=== PATIENT | female | born 2000 | race Caucasian/White ===

== ENCOUNTER 2022-01-17 11:52 | Emergency (ER) | payer SELFPAY ==
[2022-01-17 11:56] VITALS: BP 119/92; PULSE 83; RESP 12; TEMP 36.9; O2SAT 98
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
[2022-01-17 13:17] VITALS: BP 110/69; PULSE 64; RESP 16; TEMP 37.1; O2SAT 100
== END 2022-01-17 13:20 | disposition home or self-care (01) ==
PROVIDERS: Emergency Provider Nurse Practitioner Family
DX: T67.9XXA Effect of heat and light, unspecified, initial encounter (principal); R51.9 Headache, unspecified; X58.XXXA Exposure to other specified factors, initial encounter
CPT/HCPCS: 99283

== ENCOUNTER 2024-10-22 11:40 | Outpatient (CLI) | payer OTHER, SELFPAY ==
[2024-10-22 12:32] LABS: Beta HCG Quantitative < 2.39 mIU/ML
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
--- OUTSIDE RECORDS SUMMARY | 2024-10-22 13:18 | XMS_ITS | Clinical Summary ---
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 F/u 1 week or sooner prn. Medical History Medical History Date Comments Amblyopia, right eye 01/16/2019 Commotio retinae of right eye 01/16/2019 Traumatic iritis 01/16/2019 Vitreous hemorrhage, right eye (HCC) 01/28/2019 Social History Tobacco Use Types Packs/Day Years [...] on file Sexual Orientation Not on file Obstetrics History Last Filed Vital Signs Vital Sign Reading [...] 02/13/2024 10:30 PM CDT Plan of Treatment Health Maintenance Due Date Last Done Comments Cervical Cancer Screening 2000 Depression Screening 2000 Hepatitis C Screening 2000 DTaP/Tdap/Td Vaccine (1 - Tdap) 2011 Varicella Vaccines (1 of 2 - 13+ 2-dose series) 2013 Hepatitis B Screening 2018 Regular Well Visit/Exam 18-64 2018 Covid-19 Vaccine (3 - 2023-2 5 season) 2024 05/07/2021, 04/16/2021 Influenza Vaccine (#1) 2024 05/28/2019 HPV Vaccines Completed 03/17/2017, 03/24/2016, 03/23/2015 Pneumococcal vaccine <65 Aged Out No longer eligible based on patient's age to complete this topic [facility] [place] [id number] [facility] [id number] Member Subscriber Plan / Payer (Ef fective 2021-Present) Name:Angela Contreras Member ID:[id number] Relation to Subscriber:Self Name:Angela Contreras Subscriber ID:[id number] Payer ID:[id number] Type:[employer] HMO/PPO Address: [address] [place] [phone] Care Teams Purchasing Analyst Relationship Specialty Start Date End Date Miscellaneous, Not In File PCP - General 02/13/24
--- OUTSIDE RECORDS SUMMARY | 2024-10-22 13:18 | XMS_ITS ---
Author Organization [facility] Address [facility] [address] Care Team Providers Care Glassie Name Role Phone Benton Ott Sunny [phone] Medications Medication SIG (Take, Route, Frequency, Duration) Notes Start Date End Date Status buPROPion HCl ER (XL) 150 MG 1 tablet in the morning Orally Once a day for 90 days Active Social History Sex Assigned At : Social History Observation Description Sex Assigned At Female Encounters Encounter Location Date Provider Diagnosis [facility], [place] [address] [phone] 05/31/2024 Benton Ott ADHD (attention defi cit hyperactivity disorder), combined type F90.2 Assessments Encounter Date Diagnosis (ICD Code) Assessment Notes Treatment Notes Treatment Clinical Notes Section Notes 05/31/2024 ADHD (attention deficit hyperactivity disorder), combined type (ICD-10 - F90.2) Plan Of Treatment Medication Medication Name Sig Start Date Stop Date Notes buPROPion HCl ER (XL) 150 MG 1 tablet in the morning Orally Once a day for 90 days Progress Notes * Daniella CONTRERASaret CDOB: [birth year] (23 yo F)Acc No.[id number]:05/31/2024 Patient: Angela WRIGHT Dayday :2000 A ge:23 Y S ex:Female Address:[address]ending [facility] to [facility] [place], [address] * Refills Refill buPROPion HCl ER (XL) Tablet Extended Release 24 Hour, 150 MG, Orally, 90, 1 tablet in the morning, Once a day, 90 days, Refills=0 * true * Date: Generated for Jason key/Nohemy/Michael on: 0 10/22/2024 01:18 PM CDT
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
--- OUTSIDE RECORDS SUMMARY | 2024-10-22 13:19 | XMS_ITS ---
Author Organization [facility] [employer] Address [facility] [address] [address] Care Team Providers Care Training Consultant Name Role Phone Benton Ott Sunny [phone] Medications Medication SIG (Take, Route, Fr equency, Duration) Notes Start Date End Date Status FLUoxetine HCl 20 MG 1 tablet Orally Onc e a day for 30 days 08/29/2024 Active Social History Sex Assigned At : Social History Observation Description Sex Assigned At Female Encounters Encounter Location Date Provider Diagnosis [facility] [employer] [facility], [address] [address] [address] 08/29/2024 Benton Ott ADHD (attention defi cit hyperactivity disorder), combined type F90.2 Assessments Encounter Date Diagnosis (ICD Code) Assessment Notes Treatment Notes Treatment Clinical Notes Section Notes 08/29/2024 ADHD (attention deficit hyperactivity disorder), combined type (ICD-10 - F90.2) Plan Of Treatment Medication Medication Name Sig Start Date Stop Date Notes FLUoxetine HCl 20 MG 1 tablet Orally Onc e a day for 30 days 08/29/2024 buPROPion HCl ER (XL) 150 MG 1 tablet in the morning Orally Once a day Progress Notes * Angela CONTRERAS CDOB: [birth year] (24 yo F)Acc No.[id number]:08/29/2024 Patient: Angela WRIGHT Dayday :2000 A ge:24 Y S ex:Female Address:[facility] [place], [address] * Refills Start FLUoxetine HCl Capsule, 20 MG, Orally, 30, 1 tablet, Once a day, 30 days, Refills=0 Stop buPROPion HCl ER (XL) Tablet Extended Release 24 Hour, 150 MG, Orally, 1 tablet in the morning, Once a day * true * Date: Generated for Jason key/Nohemy/Michael on: 0 10/22/2024 01:19 PM CDT
--- OUTSIDE RECORDS SUMMARY | 2024-10-22 13:19 | XMS_ITS | Clinical Summary ---
Author Organization [facility] Address [address] [place] [address] Phone Care Team Providers Care Commercial Carpet Installer Name Role Phone Provider, None Primary Care Provider Unavailabl e Allergies No known active allergies Medications gentamicin (GARAMYCIN) 0.3 % Solution Place 2 Drops in right eye every 4 hours. 5 mL 9 Active Additional Information Patient not taking.Reported on 08/16/2022 Meloxicam 15 MG Tablet Take 1 Tab by mouth daily. 10 Tab 9 Active Additional Information Patient not taking.Reported on 08/16/2022 Social History Tobacco Use Types Packs/Day Years Used Date Smoking Tobacco: Never Smokeless Tobacco: Never Alcohol Use Standard Drinks/Week Comments Never 0 (1 standard drink = 0.6 oz pur e alcohol) AUDIT-C Answer Date Recorded Frequency of Alcohol Consumption Never 01/15/2019 Average Number of Drinks Not on file 019 Frequency of Binge Drinking Not on file 01/05 Comments Unknown Sex and Gender Information Value Date Recorded Sex Assigned at Not on file Legal Sex Female 10:19 PM CDT Gender Identity Not on file Sexual Orientation Not on file Last Filed Vital Signs Vital Sign Reading Time Taken Comments Blood Pressure 116/62 01/16/2019 4:30 AM CDT Pulse 76 01/16/2019 4:30 AM CDT Temperature 37 C (98.6 F) 01/15/2019 12:22 AM CDT Respiratory Rate 18 01/16/2019 4:30 AM CDT Oxygen Saturation 100% 01/16/2019 4:30 AM CDT Inhaled Oxygen Concentration - - Weight 47.2 kg (104 lb) 01/15/2019 10:21 PM CDT Height 157.5 cm (5' 2 ) 01/15/2019 10:21 PM CDT Body Mass Index 19.02 01/15/2019 10:21 PM CDT Plan of Treatment Health Maintenance Due Date Last Done Comments Hepatitis C Virus (HCV) Screening 2000 TdaP Immunization 2000 Hepatitis B Immunization (1 of 3 - 19+ 3-dose series) 2019 Pap Smear 2021 Influenza Immunization (#1) 2024 SARS-COV-2 Immunization (3 - 2023-25 season) 2024 05/07/2021, 04/16/2021 Respiratory Syncytial Virus (RSV) Immunization (Adult) (1 - 1-dose 75+ series) 2075 Human Papillomavirus (HPV) Immunization Completed 03/17/2017, 03/24/2016, 03/23/2015 Meningococcal Immunization (ACWY) Completed 03/17/2017 Meningococcal B Immunization Discontinued 05/2018, 03/17/2017 Pneumococcal Immunization Combined Aged Out No longer eligible based on patient's age to complete this topic Rotavirus Immunization Aged Out No lo nger eligible based on patient's age to complete this topic Insurance [facility] OAP Care Teams Commercial Carpet Installer Relationship Specialty Start Date End Date Provider, None [place] PCP - General 01/15/19
--- OUTSIDE RECORDS SUMMARY | 2024-10-22 13:19 | XMS_ITS | Patient Health Record ---
Author Organization [facility] [email or web address] Address [address] [facility] [address] [place] [address] Care Team Providers Care Application Support Manager Name Role Phone Benton Ott Unavailable [phone] Van Mcarthur Unavailable [phone] Migration, Provider Unavailable Unavailable MikeyJada kenny Unavailable [phone] Allergies No Known Allergies Results Component Value Reference Range Notes DRUG MONITOR, COCAINE METAB, QN, URINE ([id number]) Reviewed date:04/12/2024 10:40:18 AM Interpretation: Performing Lab:[facility], [facility] [address], [id number] Eduardo Virk Notes/Report: FASTING: NO Benzoylecgonine NEGATIVE <100 ng/mL Cocaine Comments See LDT Not es DRUG MONITOR, MDMA/MDA, QN, URINE ([id number]) Reviewed date:04/12/2024 10:40:10 AM Interpretation: Performing Lab:[facility] [id number], [id number] Eduardo Virk Notes/Report: FASTING: NO MDA NEGATIVE <200 ng/mL MDMA NEGATIVE <200 ng/mL MDMA Comments See LDT Notes DRUG MONITOR, OPIATES EXPAND ED, QN, URINE ([id number]) Reviewed date:04/12/2024 10:40:01 AM Interpretation: Performing Lab:[facility] [id number], [id number] Eduardo Virk, Director - [id number] [facility] Notes/Report: FASTING: NO Codeine NEGATIVE <50 ng/mL Hydrocodone NEGATIVE <50 ng/mL Hydromorphone NEGATIVE <50 ng/mL Morphine NEGATIVE <50 ng/mL Norhydrocodone NEGATIVE <50 ng/mL Opiates Comments See LDT Not es Noroxycodone NEGATIVE <50 ng/mL Oxycodone NEGATIVE <50 ng/mL Oxymorphone NEGATIVE <50 ng/mL Oxycodone Comments See LDT N otes Notes and Comments This drug testing is for medical treatment only. Analysis was performed as non-forensic testing and these results should be used only by healthcare providers to render diagnosis or treatment, or to monitor progress of medical conditions. LDT Notes: Confirmation tests were developed and their analytical performance characteristics have been determined by [employer]. It has not been cleared or approved by the FDA. This assay has been validated pursuant to the CLIA regulations and is used for clinical purposes. Healthcare Providers needing Interpretation assistance, please contact us at [phone] ( ) M-F, 8am to 10pm EST DRUG MONITOR, BENZO, QN, URI NE ([id number]) Reviewed date:04/12/2024 10:40:24 AM Interpretation: Performing Lab:[facility], [facility], [id number] Eduardo Virk Notes/Report: FASTING: NO Alphahydroxyalprazolam NEGATIVE <25 ng/mL Alphahydroxymidazolam NEGATIVE <50 ng/mL Alphahydroxytriazolam NEGATIVE <50 ng/mL Aminoclonazepam NEGATIVE <25 ng/mL Hydroxyethylflurazepam NEGATIVE <50 ng/mL Lorazepam NEGATIVE <50 ng/mL Nordiazepam NEGATIVE <50 ng/mL Oxazepam NEGATIVE <50 ng/mL Temazepam NEGATIVE <50 ng/mL Benzodiazepines Comments See LDT Notes DRUG MONITOR,AMPHETAMINE, QN , URINE ([id number]) Reviewed date:04/12/2024 10:40:32 AM Interpretation: Performing Lab:[facility], [place] Eduardo Virk Notes/Report: FASTING: NO Amphetamine NEGATIVE <250 ng/mL Methamphetamine NEGATIVE <250 ng/mL Amphetamines Comments See LD T Notes Reason For Referral No Information Medications Medication SIG (Take, Route, Fr equency, Duration) Notes Start Date End Date Status FLUoxetine HCl 20 MG 1 tablet Orally Onc e a day for 30 days 08/29/2024 Active Prazosin HCl 1 MG 1 capsule at bedtime Orally Once a day Active Propranolol HCl 10 MG 1 tablet Orally Three times a day As needed Active Social History Tobacco Use: Social History [...] Problem Status W/U Status Risk Notes Problem [id number] KATHERINE (generalized anxiety disorder) (F41.1) Active confirmed Problem [id number] Nightmares (F51.5) Active confirmed Problem 48603074 Severe episode o f recurrent major depressive disorder, without psychotic features (F33.2) Active confirmed Problem Attention deficit hyperactivity disorder (943305654) ADHD (attention deficit hyperactivity disorder), combined type (F90.2) Active confirmed Problem 33405883 MDD (major depressive disorder), recurrent episode, moderate (F33.1) Active confirmed Problem 39811950 PTSD (post-traumatic stress disorder) (F43.10) Active confirmed Problem 87063196 Attention defici t hyperactivity disorder (ADHD), combined type (F90.2) Active confirmed Problem 174269895 Marijuana use (F12.90) Active confirmed Problem 373791064 Mild episode of recurrent major depressive disorder (F33.0) Active confirmed Problem Severe major depression, single episode, without psychotic features (54562608) MDD (major depressive disorder), severe (F32.2) Active confirmed Problem 28045006 Borderline personality disorder in adult (F60.3) Active confirmed Problem 46131052 Sleep disorder (G47.9) Active confirmed Vital Signs Heart Rate 65 /min 06/10/2024 Blood pressure diastolic 82 mm Hg 06/10/2024 Weight-kg 72.03 kg 04/22/2024 Blood pressure systolic 110 mm Hg 06/10/2024 Weight 158.8 lbs 04/22/2024 Procedures Procedure Date Ordered Date Performed Result Body Sit e ADHD Testing 03/28/2024 N/A ADHD Testing 04/22/2024 N/A Encounters Encounter Location Date Provider Diagnosis [facility] [employer] [address] [facility] [address] [place] [address] 03/28/2024 Benton Clubb Attention deficit hyperactivity disorder (ADHD), combined type F90.2 ; Severe episode of recurrent major depressive disorder, without psychotic features F33.2 ; KATHERINE (generalized anxiety disorder) F41.1 ; PTSD (post-traumatic stress disorder) F43.10 ; Borderline personality disorder in adult F60.3 and Sleep disorder G47.9 [facility] [employer] [address] [facility] [address] [place] [address] 04/03/2024 Jada Watkins [facility] [employer] [facility], [employer] [address] [facility] [address] [place] [address] 04/10/2024 Jada Watkins KATHERINE (generalized anxiety disorder) F41.1 [employer] [facility] [address] [facility] [address] [place] [address] 04/15/2024 Van Mcarthur [employer] [facility], [employer] [address] [place] [address] 04/22/2024 Benton Clubb KATHERINE (generalized anxiety disorder) F41.1 ; MDD (major depressive disorder), severe F32.2 ; PTSD (post-traumatic stress disorder) F43.10 ; Attention deficit hyperactivity disorder (ADHD), combined type F90.2 ; Borderline personality disorder in adult F60.3 ; Nightmares F51.5 and Marijuana use F12.90 [facility], [employer] [address] [facility] [address] [place] [address] 04/24/2024 Jada Watkins [facility] [employer] [facility] [address] [address] [place] [address] 04/26/2024 Van Mcarthur ADHD (attention deficit hyperactivity disorder), combined type F90.2 [facility] [employer] [facility], [facility] [address] [facility] [address] [place] [address] 05/01/2024 Jada Jensenzoya [facility] [employer] [facility], [facility] [address] [facility] [address] [place] [address] 05/03/2024 Benton Clubb ADHD (attention deficit hyperactivity disorder), combined type F90.2 ; MDD (major depressive disorder), severe F32.2 ; PTSD (post-traumatic stress disorder) F43.10 ; Borderline personality disorder in adult F60.3 ; Nightmares F51.5 and Marijuana use F12.90 [facility] [employer] [facility], [employer] [address] [facility] [address] [place] [address] 06/10/2024 Benton Clubb Borderline personality disorder in adult F60.3 ; Mild episode of recurrent major depressive disorder F33.0 ; ADHD (attention deficit hyperactivity disorder), combined type F90.2 ; PTSD (post-traumatic stress disorder) F43.10 ; Nightmares F51.5 and Marijuana use F12.90 [facility] [employer] [facility] [address] [address] 12/23/2023 Provider Migration [facility] [employer] [facility] [address] [address] 12/24/2023 Provider Migration [employer] [facility], [facility] [address] [address] 05/31/2024 Benton Clubb ADHD (attention deficit hyperactivity disorder), combined type F90.2 [facility] [employer] [facility], [employer] [address] [address] 08/29/2024 Benton Clubb ADHD (attention deficit hyperactivity disorder), combined type F90.2 Assessments Encounter Date Diagnosis (ICD Code) Assessment Notes Treatment Notes Treatment Clinical Notes Section Notes 03/28/2024 Severe episode of recurrent major depressive disorder, without psychotic features (ICD-10 - F33.2) 1. Major Depressive Disorder (MDD) - Start Bupropion (Wellbutrin) 75 mg daily for four weeks. She is instructed to set an alarm for 1 pm daily to ensure medication adherence. - Reassess her response to medication in one month. 2. Post-Traumatic Stress Disorder (PTSD) - Prescribe Prazosin for nightmares, starting at the lowest dose. Educate her on taking medication before bedtime and avoiding activities that may interfere with its effectiveness such as using her phone for hours before falling asleep. - Reevaluate her response to medication in one month. 3. Anxiety - Monitor her anxiety levels during follow-up appointments. - Encourage her to engage in anxiety-alleviat ing activities such as sleep and hiking. 4. Attention Deficit Hyperactivity Disorder (ADHD) - Suspected - Order ADHD testing: one-hour computerized exam. - Discuss results and potential treatment options once test results are available. 5. Borderline Personality Disorder (BPD) - Refer her to Jada, a therapist at the walk-in clinic, for group therapy sessions designed for individuals with BPD. - Encourage her to attend weekly sessions starting Monday, the , from 4:00-5:30 PM. 6. Sleep Disturbances (Insomnia and Excessive Sleeping) - Instruct her to avoid caffeine and maintain a consistent sleep schedule. - Monitor her sleep patterns during follow-up appointments. She reports sleeping about 11-12 hours per day. 7. Vitamin Deficiencies - Suspected - Order blood work to assess vitamin D and B12 levels, as well as thyroid function through [employer]. - Consider prescribing vitamin supplements or other interventions based on lab results. 8. Substance Use (Alcohol and Marijuana) - Continue to monitor her substance use during follow-up appointments. - Provide education on potential risks and benefits of use. She reports occasional alcohol use and using THC gummies 2-3 times per week. Follow-up - Schedule a follow-up appointment in one month to reassess her response to the treatment plan and discuss any necessary adjustments. 03/28/2024 Attention deficit hyperactivity disorder (ADHD), combined type (ICD-10 - F90.2) 1. Major Depressive Disorder (MDD) - Start Bupropion (Wellbutrin) 75 mg daily for four weeks. She is instructed to set an alarm for 1 pm daily to ensure medication adherence. - Reassess her response to medication in one month. 2. Post-Traumatic Stress Disorder (PTSD) - Prescribe Prazosin for nightmares, starting at the lowest dose. Educate her on taking medication before bedtime and avoiding activities that may interfere with its effectiveness such as using her phone for hours before falling asleep. - Reevaluate her response to medication in one month. 3. Anxiety - Monitor her anxiety levels during follow-up appointments. - Encourage her to engage in anxiety-alleviat ing activities such as sleep and hiking. 4. Attention Deficit Hyperactivity Disorder (ADHD) - Suspected - Order ADHD testing: one-hour computerized exam. - Discuss results and potential treatment options once test results are available. 5. Borderline Personality Disorder (BPD) - Refer her to Jada, a therapist at the walk-in clinic, for group therapy sessions designed for individuals with BPD. - Encourage her to attend weekly sessions starting Monday, the , from 4:00-5:30 PM. 6. Sleep Disturbances (Insomnia and Excessive Sleeping) - Instruct her to avoid caffeine and maintain a consistent sleep schedule. - Monitor her sleep patterns during follow-up appointments. She reports sleeping about 11-12 hours per day. 7. Vitamin Deficiencies - Suspected - Order blood work to assess vitamin D and B12 levels, as well as thyroid function through [employer]. - Consider prescribing vitamin supplements or other interventions based on lab results. 8. Substance Use (Alcohol and Marijuana) - Continue to monitor her substance use during follow-up appointments. - Provide education on potential risks and benefits of use. She reports occasional alcohol use and using THC gummies 2-3 times per week. Follow-up - Schedule a follow-up appointment in one month to reassess her response to the treatment plan and discuss any necessary adjustments. 04/10/2024 KATHERINE (generalized anxiety disorder) (ICD-10 - F41.1) 04/22/2024 KATHERINE (generalized anxiety disorder) (ICD-10 - F41.1) 1. Major Depressive Disorder - PHQ-9 score improvement from 23 to 17. Persistent low mood, impaired concentration, poor motivation, guilt, worthlessness, and sleep disturbances. - Patient rates current depression as 8/10. - Plan: a. Change bupropion to extended-release once-daily dosing. b. Monitor mood, side effects, and tolerability. c. Encourage regular therapy appointments. d. encourage medication compliance. 2. Anxiety - Anxiety remains unchanged with restlessness and irritability. - KATHERINE score went from 16 last visit to 17 during this visit. - Plan: a. initiate Propranolol HCL 10 mg po TID PRN b. increase bupropion from 75 mg daily to ER 150 mg daily. c. Monitor anxiety levels. d. Encourage discussing anxiety management strategies in therapy. 3. Sleep Disturbances and Nightmares - Prazosin helps with nightmares but patient not taking consistently. - Issues with sleep onset, night awakenings, and morning awakenings. - Plan: a. Encourage consistent prazosin use as prescribed for nightmares. b. Monitor sleep quality and nightmare frequency. 4. Decreased Appetite - Patient reports decreased appetite, possibly bupropion-relate d. - Plan: Monitor appetite and weight, consider medication adjustment if problematic. 5. ADHD Evaluation - Patient needs to schedule ADHD exam. - Plan: Instruct patient to schedule ADHD evaluation and follow up with results. 6. Follow-Up and Therapy - Patient missed ~6 days of medication. - Attending group therapy sessions.- missed one session. - Plan: a. Schedule 1-month follow-up to assess progress and medication effectiveness. b. Encourage continued group therapy for BPD and consider individual therapy. 7. Marijuana use. - encouraged to use dispensary and approved sources - educated on safety and not to operate heavy machinery while intoxicated - discussed marijuana's risks and negative correlation with depression and medication metabolism. 04/22/2024 MDD (major depressive disorder), severe (ICD-10 - F32.2) 1. Major Depressive Disorder - PHQ-9 score improvement from 23 to 17. Persistent low mood, impaired concentration, poor motivation, guilt, worthlessness, and sleep disturbances. - Patient rates current depression as 8/10. - Plan: a. Change bupropion to extended-release once-daily dosing. b. Monitor mood, side effects, and tolerability. c. Encourage regular therapy appointments. d. encourage medication compliance. 2. Anxiety - Anxiety remains unchanged with restlessness and irritability. - KATHERINE score went from 16 last visit to 17 during this visit. - Plan: a. initiate Propranolol HCL 10 mg po TID PRN b. increase bupropion from 75 mg daily to ER 150 mg daily. c. Monitor anxiety levels. d. Encourage discussing anxiety management strategies in therapy. 3. Sleep Disturbances and Nightmares - Prazosin helps with nightmares but patient not taking consistently. - Issues with sleep onset, night awakenings, and morning awakenings. - Plan: a. Encourage consistent prazosin use as prescribed for nightmares. b. Monitor sleep quality and nightmare frequency. 4. Decreased Appetite - Patient reports decreased appetite, possibly bupropion-relate d. - Plan: Monitor appetite and weight, consider medication adjustment if problematic. 5. ADHD Evaluation - Patient needs to schedule ADHD exam. - Plan: Instruct patient to schedule ADHD evaluation and follow up with results. 6. Follow-Up and Therapy - Patient missed ~6 days of medication. - Attending group therapy sessions.- missed one session. - Plan: a. Schedule 1-month follow-up to assess progress and medication effectiveness. b. Encourage continued group therapy for BPD and consider individual therapy. 7. Marijuana use. - encouraged to use dispensary and approved sources - educated on safety and not to operate heavy machinery while intoxicated - discussed marijuana's risks and negative correlation with depression and medication metabolism. 04/26/2024 ADHD (attention deficit hyperactivity disorder), combined type (ICD-10 - F90.2) 05/03/2024 ADHD (attention deficit hyperactivity disorder), combined type (ICD-10 - F90.2) 1. Anxiety - She reports anxiety levels 7-8/10. - KATHERINE score increased from 17 to 18. - Contributing factors: relationship issues, calls from her father. - Plan: a. Continue attending DBT group weekly. b. Consider starting propranolol if symptoms persist/worsen. 2. Depression - She reports depression levels 6-7/10. - PHQ score increased from 16 to 22. - Decreased appetite since starting medication. - Plan: a. Discontinue bupropion 75mg, initiate bupropion XL 150mg. b. Monitor her appetite and weight changes. c. Continue DBT group weekly. 3. ADHD, Combined Type - Cognitive assessment indicates difficulty sustaining her attention. - Plan: a. Monitor effects of bupropion XL 150mg on her attention/focus. b. Consider further evaluation/treat ment if no improvement. 4. Sleep Disturbances and Nightmares - She reports prazosin helps with nightmares. - Sleeps 8 hours nightly but naps during day. - Plan: a. Encourage regular prazosin use for nightmares. b. Assess sleep hygiene, consider sleep study if issues persist. 5. Suicidal Ideation - She reports suicidal thoughts 1-2 times/week, no plan/intent. - Plan: a. Closely monitor her suicidal ideation at follow-ups. b. Encourage reaching out if thoughts worsen/increase. c. suicide safety plan in place. 6. Substance Use - She is using marijuana gummies nightly. - Plan: a. Discuss potential risks/benefits of her marijuana use. b. Encourage considering alternatives for anxiety/sleep. 05/03/2024 MDD (major depressive disorder), severe (ICD-10 - F32.2) 1. Anxiety - She reports anxiety levels 7-8/10. - KATHERINE score increased from 17 to 18. - Contributing factors: relationship issues, calls from her father. - Plan: a. Continue attending DBT group weekly. b. Consider starting propranolol if symptoms persist/worsen. 2. Depression - She reports depression levels 6-7/10. - PHQ score increased from 16 to 22. - Decreased appetite since starting medication. - Plan: a. Discontinue bupropion 75mg, initiate bupropion XL 150mg. b. Monitor her appetite and weight changes. c. Continue DBT group weekly. 3. ADHD, Combined Type - Cognitive assessment indicates difficulty sustaining her attention. - Plan: a. Monitor effects of bupropion XL 150mg on her attention/focus. b. Consider further evaluation/treat ment if no improvement. 4. Sleep Disturbances and Nightmares - She reports prazosin helps with nightmares. - Sleeps 8 hours nightly but naps during day. - Plan: a. Encourage regular prazosin use for nightmares. b. Assess sleep hygiene, consider sleep study if issues persist. 5. Suicidal Ideation - She reports suicidal thoughts 1-2 times/week, no plan/intent. - Plan: a. Closely monitor her suicidal ideation at follow-ups. b. Encourage reaching out if thoughts worsen/increase. c. suicide safety plan in place. 6. Substance Use - She is using marijuana gummies nightly. - Plan: a. Discuss potential risks/benefits of her marijuana use. b. Encourage considering alternatives for anxiety/sleep. 05/31/2024 ADHD (attention deficit hyperactivity disorder), combined type (ICD-10 - F90.2) 06/10/2024 Mild episode of recurrent major depressive [...] b. Encourage use before anticipated stressors or anxiety-provokin g situations. c. Reinforce importance of utilizing coping [...] date recently, indicating positive social engagement. 06/10/2024 Borderline personality disorder in adult (ICD-10 [...] b. Encourage use before anticipated stressors or anxiety-provokin g situations. c. Reinforce importance of utilizing coping [...] a date recently, indicating positive social engagement. 08/29/2024 ADHD (attention deficit hyperactivity disorder), combined type (ICD-10 - F90.2) 06/10/2024 ADHD (attention deficit hyperactivity disorder), combined [...] b. Encourage use before anticipated stressors or anxiety-provokin g situations. c. Reinforce importance of utilizing coping [...] provider as needed. c. Provide crisis number ([phone]) and remind of support system. d. Schedule follow-up appointment in 6 months or as needed (PRN basis). 5. Additional Notes - Patient still using edibles. - Diagnosis updated to mild depression based on improved PHQ score. - Patient went on a date recently, indicating positive social engagement. 03/28/2024 KATHERINE (generalized anxiety disorder) (ICD-10 - F41.1) 1. Major Depressive Disorder (MDD) - Start Bupropion (Wellbutrin) 75 mg daily for four weeks. She is instructed to set an alarm for 1 pm daily to ensure medication adherence. - Reassess her response to medication in one month. 2. Post-Traumatic Stress Disorder (PTSD) - Prescribe Prazosin for nightmares, starting at the lowest dose. Educate her on taking medication before bedtime and avoiding activities that may interfere with its effectiveness such as using her phone for hours before falling asleep. - Reevaluate her response to medication in one month. 3. Anxiety - Monitor her anxiety levels during follow-up appointments. - Encourage her to engage in anxiety-alleviat ing activities such as sleep and hiking. 4. Attention Deficit Hyperactivity Disorder (ADHD) - Suspected - Order ADHD testing: one-hour computerized exam. - Discuss results and potential treatment options once test results are available. 5. Borderline Personality Disorder (BPD) - Refer her to Jada, a therapist at the walk-in clinic, for group therapy sessions designed for individuals with BPD. - Encourage her to attend weekly sessions starting Monday, , from 4:00-5:30 PM. 6. Sleep Disturbances (Insomnia and Excessive Sleeping) - Instruct her to avoid caffeine and maintain a consistent sleep schedule. - Monitor her sleep patterns during follow-up appointments. She reports sleeping about 11-12 hours per day. 7. Vitamin Deficiencies - Suspected - Order blood work to assess vitamin D and B12 levels, as well as thyroid function through [employer]. - Consider prescribing vitamin supplements or other interventions based on lab results. 8. Substance Use (Alcohol and Marijuana) - Continue to monitor her substance use during follow-up appointments. - Provide education on potential risks and benefits of use. She reports occasional alcohol use and using THC gummies 2-3 times per week. Follow-up - Schedule a follow-up appointment in one month to reassess her response to the treatment plan and discuss any necessary adjustments. 05/03/2024 PTSD (post-traumatic stress disorder) (ICD-10 - F43.10) 1. Anxiety - She reports anxiety levels 7-8/10. - KATHERINE score increased from 17 to 18. - Contributing factors: relationship issues, calls from her father. - Plan: a. Continue attending DBT group weekly. b. Consider starting propranolol if symptoms persist/worsen. 2. Depression - She reports depression levels 6-7/10. - PHQ score increased from 16 to 22. - Decreased appetite since starting medication. - Plan: a. Discontinue bupropion 75mg, initiate bupropion XL 150mg. b. Monitor her appetite and weight changes. c. Continue DBT group weekly. 3. ADHD, Combined Type - Cognitive assessment indicates difficulty sustaining her attention. - Plan: a. Monitor effects of bupropion XL 150mg on her attention/focus. b. Consider further evaluation/treat ment if no improvement. 4. Sleep Disturbances and Nightmares - She reports prazosin helps with nightmares. - Sleeps 8 hours nightly but naps during day. - Plan: a. Encourage regular prazosin use for nightmares. b. Assess sleep hygiene, consider sleep study if issues persist. 5. Suicidal Ideation - She reports suicidal thoughts 1-2 times/week, no plan/intent. - Plan: a. Closely monitor her suicidal ideation at follow-ups. b. Encourage reaching out if thoughts worsen/increase. c. suicide safety plan in place. 6. Substance Use - She is using marijuana gummies nightly. - Plan: a. Discuss potential risks/benefits of her marijuana use. b. Encourage considering alternatives for anxiety/sleep. 04/22/2024 PTSD (post-traumatic stress disorder) (ICD-10 - F43.10) 1. Major Depressive Disorder - PHQ-9 score improvement from 23 to 17. Persistent low mood, impaired concentration, poor motivation, guilt, worthlessness, and sleep disturbances. - Patient rates current depression as 8/10. - Plan: a. Change bupropion to extended-release once-daily dosing. b. Monitor mood, side effects, and tolerability. c. Encourage regular therapy appointments. d. encourage medication compliance. 2. Anxiety - Anxiety remains unchanged with restlessness and irritability. - KATHERINE score went from 16 last visit to 17 during this visit. - Plan: a. initiate Propranolol HCL 10 mg po TID PRN b. increase bupropion from 75 mg daily to ER 150 mg daily. c. Monitor anxiety levels. d. Encourage discussing anxiety management strategies in therapy. 3. Sleep Disturbances and Nightmares - Prazosin helps with nightmares but patient not taking consistently. - Issues with sleep onset, night awakenings, and morning awakenings. - Plan: a. Encourage consistent prazosin use as prescribed for nightmares. b. Monitor sleep quality and nightmare frequency. 4. Decreased Appetite - Patient reports decreased appetite, possibly bupropion-relate d. - Plan: Monitor appetite and weight, consider medication adjustment if problematic. 5. ADHD Evaluation - Patient needs to schedule ADHD exam. - Plan: Instruct patient to schedule ADHD evaluation and follow up with results. 6. Follow-Up and Therapy - Patient missed ~6 days of medication. - Attending group therapy sessions.- missed one session. - Plan: a. Schedule 1-month follow-up to assess progress and medication effectiveness. b. Encourage continued group therapy for BPD and consider individual therapy. 7. Marijuana use. - encouraged to use dispensary and approved sources - educated on safety and not to operate heavy machinery while intoxicated - discussed marijuana's risks and negative correlation with depression and medication metabolism. 04/22/2024 Attention deficit hyperactivity disorder (ADHD), combined type (ICD-10 - F90.2) 1. Major Depressive Disorder - PHQ-9 score improvement from 23 to 17. Persistent low mood, impaired concentration, poor motivation, guilt, worthlessness, and sleep disturbances. - Patient rates current depression as 8/10. - Plan: a. Change bupropion to extended-release once-daily dosing. b. Monitor mood, side effects, and tolerability. c. Encourage regular therapy appointments. d. encourage medication compliance. 2. Anxiety - Anxiety remains unchanged with restlessness and irritability. - KATHERINE score went from 16 last visit to 17 during this visit. - Plan: a. initiate Propranolol HCL 10 mg po TID PRN b. increase bupropion from 75 mg daily to ER 150 mg daily. c. Monitor anxiety levels. d. Encourage discussing anxiety management strategies in therapy. 3. Sleep Disturbances and Nightmares - Prazosin helps with nightmares but patient not taking consistently. - Issues with sleep onset, night awakenings, and morning awakenings. - Plan: a. Encourage consistent prazosin use as prescribed for nightmares. b. Monitor sleep quality and nightmare frequency. 4. Decreased Appetite - Patient reports decreased appetite, possibly bupropion-relate d. - Plan: Monitor appetite and weight, consider medication adjustment if problematic. 5. ADHD Evaluation - Patient needs to schedule ADHD exam. - Plan: Instruct patient to schedule ADHD evaluation and follow up with results. 6. Follow-Up and Therapy - Patient missed ~6 days of medication. - Attending group therapy sessions.- missed one session. - Plan: a. Schedule 1-month follow-up to assess progress and medication effectiveness. b. Encourage continued group therapy for BPD and consider individual therapy. 7. Marijuana use. - encouraged to use dispensary and approved sources - educated on safety and not to operate heavy machinery while intoxicated - discussed marijuana's risks and negative correlation with depression and medication metabolism. 03/28/2024 PTSD (post-traumatic stress disorder) (ICD-10 - F43.10) 1. Major Depressive Disorder (MDD) - Start Bupropion (Wellbutrin) 75 mg daily for four weeks. She is instructed to set an alarm for 1 pm daily to ensure medication adherence. - Reassess her response to medication in one month. 2. Post-Traumatic Stress Disorder (PTSD) - Prescribe Prazosin for nightmares, starting at the lowest dose. Educate her on taking medication before bedtime and avoiding activities that may interfere with its effectiveness such as using her phone for hours before falling asleep. - Reevaluate her response to medication in one month. 3. Anxiety - Monitor her anxiety levels during follow-up appointments. - Encourage her to engage in anxiety-alleviat ing activities such as sleep and hiking. 4. Attention Deficit Hyperactivity Disorder (ADHD) - Suspected - Order ADHD testing: one-hour computerized exam. - Discuss results and potential treatment options once test results are available. 5. Borderline Personality Disorder (BPD) - Refer her to Jada, a therapist at the walk-in clinic, for group therapy sessions designed for individuals with BPD. - Encourage her to attend weekly sessions starting Monday, the , from 4:00-5:30 PM. 6. Sleep Disturbances (Insomnia and Excessive Sleeping) - Instruct her to avoid caffeine and maintain a consistent sleep schedule. - Monitor her sleep patterns during follow-up appointments. She reports sleeping about 11-12 hours per day. 7. Vitamin Deficiencies - Suspected - Order blood work to assess vitamin D and B12 levels, as well as thyroid function through [employer]. - Consider prescribing vitamin supplements or other interventions based on lab results. 8. Substance Use (Alcohol and Marijuana) - Continue to monitor her substance use during follow-up appointments. - Provide education on potential risks and benefits of use. She reports occasional alcohol use and using THC gummies 2-3 times per week. Follow-up - Schedule a follow-up appointment in one month to reassess her response to the treatment plan and discuss any necessary adjustments. 05/03/2024 Borderline personality disorder in adult (ICD-10 - F60.3) 1. Anxiety - She reports anxiety levels 7-8/10. - KATHERINE score increased from 17 to 18. - Contributing factors: relationship issues, calls from her father. - Plan: a. Continue attending DBT group weekly. b. Consider starting propranolol if symptoms persist/worsen. 2. Depression - She reports depression levels 6-7/10. - PHQ score increased from 16 to 22. - Decreased appetite since starting medication. - Plan: a. Discontinue bupropion 75mg, initiate bupropion XL 150mg. b. Monitor her appetite and weight changes. c. Continue DBT group weekly. 3. ADHD, Combined Type - Cognitive assessment indicates difficulty sustaining her attention. - Plan: a. Monitor effects of bupropion XL 150mg on her attention/focus. b. Consider further evaluation/treat ment if no improvement. 4. Sleep Disturbances and Nightmares - She reports prazosin helps with nightmares. - Sleeps 8 hours nightly but naps during day. - Plan: a. Encourage regular prazosin use for nightmares. b. Assess sleep hygiene, consider sleep study if issues persist. 5. Suicidal Ideation - She reports suicidal thoughts 1-2 times/week, no plan/intent. - Plan: a. Closely monitor her suicidal ideation at follow-ups. b. Encourage reaching out if thoughts worsen/increase. c. suicide safety plan in place. 6. Substance Use - She is using marijuana gummies nightly. - Plan: a. Discuss potential risks/benefits of her marijuana use. b. Encourage considering alternatives for anxiety/sleep. 06/10/2024 PTSD (post-traumatic stress disorder) (ICD-10 - [...] b. Encourage use before anticipated stressors or anxiety-provokin g situations. c. Reinforce importance of utilizing coping [...] b. Encourage use before anticipated stressors or anxiety-provokin g situations. c. Reinforce importance of utilizing coping [...] a date recently, indicating positive social engagement. 05/03/2024 Nightmares (ICD-10 - F51.5) 1. Anxiety - She reports anxiety levels 7-8/10. - KATHERINE score increased from 17 to 18. - Contributing factors: relationship issues, calls from her father. - Plan: a. Continue attending DBT group weekly. b. Consider starting propranolol if symptoms persist/worsen. 2. Depression - She reports depression levels 6-7/10. - PHQ score increased from 16 to 22. - Decreased appetite since starting medication. - Plan: a. Discontinue bupropion 75mg, initiate bupropion XL 150mg. b. Monitor her appetite and weight changes. c. Continue DBT group weekly. 3. ADHD, Combined Type - Cognitive assessment indicates difficulty sustaining her attention. - Plan: a. Monitor effects of bupropion XL 150mg on her attention/focus. b. Consider further evaluation/treat ment if no improvement. 4. Sleep Disturbances and Nightmares - She reports prazosin helps with nightmares. - Sleeps 8 hours nightly but naps during day. - Plan: a. Encourage regular prazosin use for nightmares. b. Assess sleep hygiene, consider sleep study if issues persist. 5. Suicidal Ideation - She reports suicidal thoughts 1-2 times/week, no plan/intent. - Plan: a. Closely monitor her suicidal ideation at follow-ups. b. Encourage reaching out if thoughts worsen/increase. c. suicide safety plan in place. 6. Substance Use - She is using marijuana gummies nightly. - Plan: a. Discuss potential risks/benefits of her marijuana use. b. Encourage considering alternatives for anxiety/sleep. 04/22/2024 Borderline personality disorder in adult (ICD-10 - F60.3) 1. Major Depressive Disorder - PHQ-9 score improvement from 23 to 17. Persistent low mood, impaired concentration, poor motivation, guilt, worthlessness, and sleep disturbances. - Patient rates current depression as 8/10. - Plan: a. Change bupropion to extended-release once-daily dosing. b. Monitor mood, side effects, and tolerability. c. Encourage regular therapy appointments. d. encourage medication compliance. 2. Anxiety - Anxiety remains unchanged with restlessness and irritability. - KATHERINE score went from 16 last visit to 17 during this visit. - Plan: a. initiate Propranolol HCL 10 mg po TID PRN b. increase bupropion from 75 mg daily to ER 150 mg daily. c. Monitor anxiety levels. d. Encourage discussing anxiety management strategies in therapy. 3. Sleep Disturbances and Nightmares - Prazosin helps with nightmares but patient not taking consistently. - Issues with sleep onset, night awakenings, and morning awakenings. - Plan: a. Encourage consistent prazosin use as prescribed for nightmares. b. Monitor sleep quality and nightmare frequency. 4. Decreased Appetite - Patient reports decreased appetite, possibly bupropion-relate d. - Plan: Monitor appetite and weight, consider medication adjustment if problematic. 5. ADHD Evaluation - Patient needs to schedule ADHD exam. - Plan: Instruct patient to schedule ADHD evaluation and follow up with results. 6. Follow-Up and Therapy - Patient missed ~6 days of medication. - Attending group therapy sessions.- missed one session. - Plan: a. Schedule 1-month follow-up to assess progress and medication effectiveness. b. Encourage continued group therapy for BPD and consider individual therapy. 7. Marijuana use. - encouraged to use dispensary and approved sources - educated on safety and not to operate heavy machinery while intoxicated - discussed marijuana's risks and negative correlation with depression and medication metabolism. 03/28/2024 Borderline personality disorder in adult (ICD-10 - F60.3) 1. Major Depressive Disorder (MDD) - Start Bupropion (Wellbutrin) 75 mg daily for four weeks. She is instructed to set an alarm for 1 pm daily to ensure medication adherence. - Reassess her response to medication in one month. 2. Post-Traumatic Stress Disorder (PTSD) - Prescribe Prazosin for nightmares, starting at the lowest dose. Educate her on taking medication before bedtime and avoiding activities that may interfere with its effectiveness such as using her phone for hours before falling asleep. - Reevaluate her response to medication in one month. 3. Anxiety - Monitor her anxiety levels during follow-up appointments. - Encourage her to engage in anxiety-alleviat ing activities such as sleep and hiking. 4. Attention Deficit Hyperactivity Disorder (ADHD) - Suspected - Order ADHD testing: one-hour computerized exam. - Discuss results and potential treatment options once test results are available. 5. Borderline Personality Disorder (BPD) - Refer her to Jada, a therapist at the walk-in clinic, for group therapy sessions designed for individuals with BPD. - Encourage her to attend weekly sessions starting Monday, the , from 4:00-5:30 PM. 6. Sleep Disturbances (Insomnia and Excessive Sleeping) - Instruct her to avoid caffeine and maintain a consistent sleep schedule. - Monitor her sleep patterns during follow-up appointments. She reports sleeping about 11-12 hours per day. 7. Vitamin Deficiencies - Suspected - Order blood work to assess vitamin D and B12 levels, as well as thyroid function through [employer]. - Consider prescribing vitamin supplements or other interventions based on lab results. 8. Substance Use (Alcohol and Marijuana) - Continue to monitor her substance use during follow-up appointments. - Provide education on potential risks and benefits of use. She reports occasional alcohol use and using THC gummies 2-3 times per week. Follow-up - Schedule a follow-up appointment in one month to reassess her response to the treatment plan and discuss any necessary adjustments. 03/28/2024 Sleep disorder (ICD-10 - G47.9) 1. Major Depressive Disorder (MDD) - Start Bupropion (Wellbutrin) 75 mg daily for four weeks. She is instructed to set an alarm for 1 pm daily to ensure medication adherence. - Reassess her response to medication in one month. 2. Post-Traumatic Stress Disorder (PTSD) - Prescribe Prazosin for nightmares, starting at the lowest dose. Educate her on taking medication before bedtime and avoiding activities that may interfere with its effectiveness such as using her phone for hours before falling asleep. - Reevaluate her response to medication in one month. 3. Anxiety - Monitor her anxiety levels during follow-up appointments. - Encourage her to engage in anxiety-alleviat ing activities such as sleep and hiking. 4. Attention Deficit Hyperactivity Disorder (ADHD) - Suspected - Order ADHD testing: one-hour computerized exam. - Discuss results and potential treatment options once test results are available. 5. Borderline Personality Disorder (BPD) - Refer her to Jada, a therapist at the walk-in clinic, for group therapy sessions designed for individuals with BPD. - Encourage her to attend weekly sessions starting Monday, the , from 4:00-5:30 PM. 6. Sleep Disturbances (Insomnia and Excessive Sleeping) - Instruct her to avoid caffeine and maintain a consistent sleep schedule. - Monitor her sleep patterns during follow-up appointments. She reports sleeping about 11-12 hours per day. 7. Vitamin Deficiencies - Suspected - Order blood work to assess vitamin D and B12 levels, as well as thyroid function through [employer]. - Consider prescribing vitamin supplements or other interventions based on lab results. 8. Substance Use (Alcohol and Marijuana) - Continue to monitor her substance use during follow-up appointments. - Provide education on potential risks and benefits of use. She reports occasional alcohol use and using THC gummies 2-3 times per week. Follow-up - Schedule a follow-up appointment in one month to reassess her response to the treatment plan and discuss any necessary adjustments. 04/22/2024 Nightmares (ICD-10 - F51.5) 1. Major Depressive Disorder - PHQ-9 score improvement from 23 to 17. Persistent low mood, impaired concentration, poor motivation, guilt, worthlessness, and sleep disturbances. - Patient rates current depression as 8/10. - Plan: a. Change bupropion to extended-release once-daily dosing. b. Monitor mood, side effects, and tolerability. c. Encourage regular therapy appointments. d. encourage medication compliance. 2. Anxiety - Anxiety remains unchanged with restlessness and irritability. - KATHERINE score went from 16 last visit to 17 during this visit. - Plan: a. initiate Propranolol HCL 10 mg po TID PRN b. increase bupropion from 75 mg daily to ER 150 mg daily. c. Monitor anxiety levels. d. Encourage discussing anxiety management strategies in therapy. 3. Sleep Disturbances and Nightmares - Prazosin helps with nightmares but patient not taking consistently. - Issues with sleep onset, night awakenings, and morning awakenings. - Plan: a. Encourage consistent prazosin use as prescribed for nightmares. b. Monitor sleep quality and nightmare frequency. 4. Decreased Appetite - Patient reports decreased appetite, possibly bupropion-relate d. - Plan: Monitor appetite and weight, consider medication adjustment if problematic. 5. ADHD Evaluation - Patient needs to schedule ADHD exam. - Plan: Instruct patient to schedule ADHD evaluation and follow up with results. 6. Follow-Up and Therapy - Patient missed ~6 days of medication. - Attending group therapy sessions.- missed one session. - Plan: a. Schedule 1-month follow-up to assess progress and medication effectiveness. b. Encourage continued group therapy for BPD and consider individual therapy. 7. Marijuana use. - encouraged to use dispensary and approved sources - educated on safety and not to operate heavy machinery while intoxicated - discussed marijuana's risks and negative correlation with depression and medication metabolism. 05/03/2024 Marijuana use (ICD-10 - F12.90) 1. Anxiety - She reports anxiety levels 7-8/10. - KATHERINE score increased from 17 to 18. - Contributing factors: relationship issues, calls from her father. - Plan: a. Continue attending DBT group weekly. b. Consider starting propranolol if symptoms persist/worsen. 2. Depression - She reports depression levels 6-7/10. - PHQ score increased from 16 to 22. - Decreased appetite since starting medication. - Plan: a. Discontinue bupropion 75mg, initiate bupropion XL 150mg. b. Monitor her appetite and weight changes. c. Continue DBT group weekly. 3. ADHD, Combined Type - Cognitive assessment indicates difficulty sustaining her attention. - Plan: a. Monitor effects of bupropion XL 150mg on her attention/focus. b. Consider further evaluation/treat ment if no improvement. 4. Sleep Disturbances and Nightmares - She reports prazosin helps with nightmares. - Sleeps 8 hours nightly but naps during day. - Plan: a. Encourage regular prazosin use for nightmares. b. Assess sleep hygiene, consider sleep study if issues persist. 5. Suicidal Ideation - She reports suicidal thoughts 1-2 times/week, no plan/intent. - Plan: a. Closely monitor her suicidal ideation at follow-ups. b. Encourage reaching out if thoughts worsen/increase. c. suicide safety plan in place. 6. Substance Use - She is using marijuana gummies nightly. - Plan: a. Discuss potential risks/benefits of her marijuana use. b. Encourage considering alternatives for anxiety/sleep. 06/10/2024 Marijuana use (ICD-10 - F12.90) discussed negative effects berniejuna has on mental health and medication metabolism [...] b. Encourage use before anticipated stressors or anxiety-provokin g situations. c. Reinforce importance of utilizing coping [...] provider as needed. c. Provide crisis number ([id number]) and remind of support system. d. Schedule follow-up appointment in 6 months or as needed (PRN basis). 5. Additional Notes - Patient still using edibles. - Diagnosis updated to mild depression based on improved PHQ score. - Patient went on a date recently, indicating positive social engagement. 04/22/2024 Marijuana use (ICD-10 - F12.90) 1. Major Depressive Disorder - PHQ-9 score improvement from 23 to 17. Persistent low mood, impaired concentration, poor motivation, guilt, worthlessness, and sleep disturbances. - Patient rates current depression as 8/10. - Plan: a. Change bupropion to extended-release once-daily dosing. b. Monitor mood, side effects, and tolerability. c. Encourage regular therapy appointments. d. encourage medication compliance. 2. Anxiety - Anxiety remains unchanged with restlessness and irritability. - KATHERINE score went from 16 last visit to 17 during this visit. - Plan: a. initiate Propranolol HCL 10 mg po TID PRN b. increase bupropion from 75 mg daily to ER 150 mg daily. c. Monitor anxiety levels. d. Encourage discussing anxiety management strategies in therapy. 3. Sleep Disturbances and Nightmares - Prazosin helps with nightmares but patient not taking consistently. - Issues with sleep onset, night awakenings, and morning awakenings. - Plan: a. Encourage consistent prazosin use as prescribed for nightmares. b. Monitor sleep quality and nightmare frequency. 4. Decreased Appetite - Patient reports decreased appetite, possibly bupropion-relate d. - Plan: Monitor appetite and weight, consider medication adjustment if problematic. 5. ADHD Evaluation - Patient needs to schedule ADHD exam. - Plan: Instruct patient to schedule ADHD evaluation and follow up with results. 6. Follow-Up and Therapy - Patient missed ~6 days of medication. - Attending group therapy sessions.- missed one session. - Plan: a. Schedule 1-month follow-up to assess progress and medication effectiveness. b. Encourage continued group therapy for BPD and consider individual therapy. 7. Marijuana use. - encouraged to use dispensary and approved sources - educated on safety and not to operate heavy machinery while intoxicated - discussed marijuana's risks and negative correlation with depression and medication metabolism. 03/28/2024 Other Bupropion Oral Tablet (BUPROPION - ORAL) material was published, Prazosin Oral Capsule (PRAZOSIN - ORAL) material was published Learning About Depression Screening material was printed 1. Major Depressive Disorder (MDD) - Start Bupropion (Wellbutrin) 75 mg daily for four weeks. She is instructed to set an alarm for 1 pm daily to ensure medication adherence. - Reassess her response to medication in one month. 2. Post-Traumatic Stress Disorder (PTSD) - Prescribe Prazosin for nightmares, starting at the lowest dose. Educate her on taking medication before bedtime and avoiding activities that may interfere with its effectiveness such as using her phone for hours before falling asleep. - Reevaluate her response to medication in one month. 3. Anxiety - Monitor her anxiety levels during follow-up appointments. - Encourage her to engage in anxiety-alleviat ing activities such as sleep and hiking. 4. Attention Deficit Hyperactivity Disorder (ADHD) - Suspected - Order ADHD testing: one-hour computerized exam. - Discuss results and potential treatment options once test results are available. 5. Borderline Personality Disorder (BPD) - Refer her to Jada, a therapist at the walk-in clinic, for group therapy sessions designed for individuals with BPD. - Encourage her to attend weekly sessions starting Monday, , from 4:00-5:30 PM. 6. Sleep Disturbances (Insomnia and Excessive Sleeping) - Instruct her to avoid caffeine and maintain a consistent sleep schedule. - Monitor her sleep patterns during follow-up appointments. She reports sleeping about 11-12 hours per day. 7. Vitamin Deficiencies - Suspected - Order blood work to assess vitamin D and B12 levels, as well as thyroid function through [employer]. - Consider prescribing vitamin supplements or other interventions based on lab results. 8. Substance Use (Alcohol and Marijuana) - Continue to monitor her substance use during follow-up appointments. - Provide education on potential risks and benefits of use. She reports occasional alcohol use and using THC gummies 2-3 times per week. Follow-up - Schedule a follow-up appointment in one month to reassess her response to the treatment plan and discuss any necessary adjustments. 04/22/2024 Other Bupropion Extended Release Oral Tablet (BUPROPION HCL EXTENDED-RELEAS E (ANTIDEPRESSANT ) - ORAL) material was printed, Propranolol Oral Tablet (PROPRANOLOL - ORAL) material was printed, Bupropion Extended Release Oral Tablet (BUPROPION HCL EXTENDED-RELEAS E (ANTIDEPRESSANT ) - ORAL) material was published, Propranolol Oral Tablet (PROPRANOLOL - ORAL) material was published Assessment and plan reviewed with patient Call for problems with medication, side effects or need for dosage change Compliance issues reviewed Discussed the risks/benefits of this medication Discussed medication side effects 1. Major Depressive Disorder - PHQ-9 score improvement from 23 to 17. Persistent low mood, impaired concentration, poor motivation, guilt, worthlessness, and sleep disturbances. - Patient rates current depression as 8/10. - Plan: a. Change bupropion to extended-release once-daily dosing. b. Monitor mood, side effects, and tolerability. c. Encourage regular therapy appointments. d. encourage medication compliance. 2. Anxiety - Anxiety remains unchanged with restlessness and irritability. - KATHERINE score went from 16 last visit to 17 during this visit. - Plan: a. initiate Propranolol HCL 10 mg po TID PRN b. increase bupropion from 75 mg daily to ER 150 mg daily. c. Monitor anxiety levels. d. Encourage discussing anxiety management strategies in therapy. 3. Sleep Disturbances and Nightmares - Prazosin helps with nightmares but patient not taking consistently. - Issues with sleep onset, night awakenings, and morning awakenings. - Plan: a. Encourage consistent prazosin use as prescribed for nightmares. b. Monitor sleep quality and nightmare frequency. 4. Decreased Appetite - Patient reports decreased appetite, possibly bupropion-relate d. - Plan: Monitor appetite and weight, consider medication adjustment if problematic. 5. ADHD Evaluation - Patient needs to schedule ADHD exam. - Plan: Instruct patient to schedule ADHD evaluation and follow up with results. 6. Follow-Up and Therapy - Patient missed ~6 days of medication. - Attending group therapy sessions.- missed one session. - Plan: a. Schedule 1-month follow-up to assess progress and medication effectiveness. b. Encourage continued group therapy for BPD and consider individual therapy. 7. Marijuana use. - encouraged to use dispensary and approved sources - educated on safety and not to operate heavy machinery while intoxicated - discussed marijuana's risks and negative correlation with depression and medication metabolism. 05/03/2024 Other Assessment and plan reviewed with patient [...] emergency services. discussed crisis prevention hotline [phone]. 1. Anxiety - She reports anxiety levels 7-810. - KATHERINE score increased from 17 to 18. - Contributing factors: relationship issues, calls from her father. - Plan: a. Continue attending DBT group weekly. b. Consider starting propranolol if symptoms persist/worsen. 2. Depression - She reports depression levels 6-7/10. - PHQ score increased from 16 to 22. - Decreased appetite since starting medication. - Plan: a. Discontinue bupropion 75mg, initiate bupropion XL 150mg. b. Monitor her appetite and weight changes. c. Continue DBT group weekly. 3. ADHD, Combined Type - Cognitive assessment indicates difficulty sustaining her attention. - Plan: a. Monitor effects of bupropion XL 150mg on her attention/focus. b. Consider further evaluation/treat ment if no improvement. 4. Sleep Disturbances and Nightmares - She reports prazosin helps with nightmares. - Sleeps 8 hours nightly but naps during day. - Plan: a. Encourage regular prazosin use for nightmares. b. Assess sleep hygiene, consider sleep study if issues persist. 5. Suicidal Ideation - She reports suicidal thoughts 1-2 times/week, no plan/intent. - Plan: a. Closely monitor her suicidal ideation at follow-ups. b. Encourage reaching out if thoughts worsen/increase. c. suicide safety plan in place. 6. Substance Use - She is using marijuana gummies nightly. - Plan: a. Discuss potential risks/benefits of her marijuana use. b. Encourage considering alternatives for anxiety/sleep. 06/10/2024 Other Assessment and plan reviewed with [...] b. Encourage use before anticipated stressors or anxiety-provokin g situations. c. Reinforce importance of utilizing coping [...] indicating positive social engagement. Plan Of Treatment Pending Test Test Name Order Date THYROID PANEL WITH TSH ([id number]) 03/28/2024 BASIC METABOLIC PANEL ([id number]) 03/28/2024 CBC (H/H, RBC, INDICES, WBC, PLT) ([id number]) 03/28/2024 VITAMIN B12 (927) 03/28/2024 VITAMIN D,25-OH,TOTAL,IA ([id number]) 024 UDT 03/28/2024 ADHD Testing 04/22/2024 ADHD Testing 03/28/2024 Insurance Providers Payer Name Payer Address Payer Phone Subscriber Number Group Number Insured Name Patient Relationship to Insured Coverage Start Date Coverage End Date [employer] [address] [place] [address] [phone] [id number] Angeal Contreras Self - patient is the insured Medical (General) History Medical History History ICD Code abdominal aortic aneurysm: No atrial fibrillation: No chronic fatigue syndrome: No essential tremor: No hyperlipidemia: No hypertension: No Parkinson's disease: No restless leg syndrome: No stroke: No subdural hematoma: No type 1 diabetes mellitus: No type 2 diabetes mellitus: No vitamin B12 deficiency: No vitamin D deficiency: No Past Psychiatric History: Anxiety Disord er,PTSD,Major Depressive Episode
== END 2024-10-22 11:41 | disposition home or self-care (01) ==
LOC: ANHLAB 11:41
PROVIDERS: PCP Family Medicine; Visit Provider Obstetrics & Gynecology
DX: Z30.9 Encounter for contraceptive management, unspecified (principal)
CPT/HCPCS: 36415; 84702

== ENCOUNTER 2024-10-24 15:37 | Outpatient (CLI) | payer OTHER, SELFPAY ==
--- OUTSIDE RECORDS SUMMARY | 2024-10-24 15:44 | XMS_ITS | Clinical Summary ---
Author Organization [facility] Address [address] [place] [address] Phone Care Team Providers Care Optoelectronics Engineer Name Role Phone Provider, None Primary Care [...] patient's age to complete this topic Insurance [facility] OAP Care Teams Optoelectronics Engineer Relationship Specialty Start Date End Date Provider, None [place] PCP - General 01/15/19
--- OUTSIDE RECORDS SUMMARY | 2024-10-24 15:44 | XMS_ITS | Clinical Summary ---
Author Organization 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) [...] patient's age to complete this topic Insurance [facility] LINK [facility] [address] [id number] [facility] [id number] Member Subscriber Plan / Payer (Ef fective 2021-Present) Name:Angela Contreras Member ID:[id number] Relation to Subscriber:Self Name:Angela Contreras Subscriber ID:[id number] Payer ID:[id number] Type:[employer] HMO/PPO Address: [address] [place] [phone] Care Teams Database Architect Relationship Specialty Start Date End Date Miscellaneous, Not In File PCP - General 02/13/24
--- OUTSIDE RECORDS SUMMARY | 2024-10-24 15:44 | XMS_ITS | Referral Summary ---
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
[2024-10-24 17:18] LABS: Trichomonas Vag PCR NOT DETECTED (NOT DETECTE)
[2024-10-24 17:43] LABS: Chlamydia trachomatis NOT DETECTED (NOT DETECTE); Neisseria gonorrhoeae PCR NOT DETECTED (NOT DETECTE)
== END 2024-10-24 15:38 | disposition home or self-care (01) ==
LOC: ANHLAB 15:38
PROVIDERS: PCP Family Medicine; Visit Provider Obstetrics & Gynecology
DX: Z30.430 Encounter for insertion of intrauterine contraceptive device (principal)
CPT/HCPCS: 87491; 87591; 87661